=== PATIENT | male | born 1975 | race Two or more races ===

== ENCOUNTER → 2016-12-15 | Outpatient (CLI) | payer BC ==
--- NOTE | 2016-12-15 23:35 | MR ---
EXAMINATION TYPE: MR hand LT wo con DATE OF EXAM: 12/15/2016 9:15 PM COMPARISON: NONE HISTORY: Lt thumb pain radiates into wrist since Jun 2016 Standard multiplanar, multisequence MRI departmental protocol Multiplanar, multisequence images of the left hand were acquired. FINDINGS: Exam concentrates on the thumb. The metacarpals appear intact. Joints of the thumb are inta ct. I see no focal bone destruction. There is no evidence of a soft tissue mass. The flexor and exten sor tendons of the hand appear intact. There is no sign of any significant joint effusion. Visualized carpal bones are intact. Intercarpal joint spaces are fairly normal. There is minor spurring at the first carpometacarpal joint. IMPRESSION: Minimal osteoarthritis at the first carpometacarpal joint. No fracture.
== END | disposition home or self-care (01) ==
LOC: RADMRIMAIN 20:20
PROVIDERS: ATTEND Family Medicine
DX: S63.602A Unspecified sprain of left thumb, initial encounter (principal); M18.12 Unilateral primary osteoarthritis of first carpometacarpal joint, left hand